=== PATIENT | female | born 1950 | race Caucasian/White ===

== ENCOUNTER 2017-08-08 14:46 | Inpatient (IN) | payer OTHER, MEDICAID ==
[~2017-08-08] VITALS: Ht 157.5 cm; Wt 62.3 kg
[~2017-08-08 14:46] MED LIST: ALPR0.5T7; ATOR10TA PO; BACL20TA; DIPH50CA; GABA100C9; PAXIL PO
[2017-08-08 16:26] LABS: Basophils # (auto) 0.1 uL; Basophils % (auto) 1.1 % (0.0-2.0); Eosinophils # (auto) 0.1 uL; Eosinophils % (auto) 1.3 % (0.0-7.0); Hematocrit 39.4 % (36.0-46.0); Hemoglobin 12.9 g/dL (12.2-16.2); Lymphocytes # (auto) 2.7 uL; Lymphocytes % (auto) 27.1 % (10.0-50.0); Mean Corpuscular Hemoglobin 30.1 pg (28.0-32.0); Mean Corpuscular Hgb Conc. 32.8 g/dL (32.0-36.0); Mean Corpuscular Volume 91.9 fL (80.0-100.0); Monocytes # (auto) 0.9 uL; Monocytes % (auto) 8.8 % (0.0-12.0); Neutrophils # (auto) 6.2 uL; Neutrophils % (auto) 61.7 % (37.0-80.0); Platelet Count (auto) 223 10^3/uL (140-450); Red Blood Cells 4.29 10^6/uL (4.0-5.20); Red Cell Distribution Width 14.3 % (11.8-14.3); White Blood Cell 10.1 10^3/uL (4.4-10.8)
[2017-08-08 16:27] LABS: Urine Bacteria FEW /hpf (None Seen); Urine Blood Negative /uL (Negative); Urine Mucus FEW (None Seen); Urine Specific Gravity 1.021 (1.001-1.035); Urine WBC 6 /hpf (0 - 5)
[2017-08-08 16:33] LABS: Albumin 3.5 g/dL (3.4-5.0); BUN/Creatinine Ratio 25.8; Bilirubin, Total 0.1 mg/dL (0.2-1.0); Calcium 8.9 mg/dL (8.5-10.1); Potassium 3.5 mmol/L (3.5-5.1)
[2017-08-08] MEDS ORDERED: ONDANSETRON HCL 4 MG/2 ML VIAL IV ONE (16:45)
[2017-08-08 17:23] LABS: INR 0.96 (0.9-1.15); Partial Thromboplastin Time 27.9 sec (23.78-33.04); Prothrombin Time 10.3 sec (9.27-12.13)
[2017-08-08 17:31] LABS: Magnesium 1.7 mg/dL (1.6-2.6)
[2017-08-08] MEDS ORDERED: cefTRIAXone 1GM/10ml IVPUSH 10 ML IV ONE ×2 (18:15→18:45)
[2017-08-08] MEDS ORDERED: SODIUM CHLORIDE 0.9% 1,000 ML IV ONE (18:15)
[2017-08-08] MEDS ORDERED: TEMAZEPAM 15 MG CAP PO PRN (18:45)
[2017-08-08] MEDS ORDERED: ACETAMINOPHEN 500 MG TAB PO PRN (18:45)
[2017-08-08] MEDS ORDERED: LORazepam 0.5 MG TAB PO PRN (18:45)
[2017-08-08] MEDS ORDERED: NITROGLYCERIN 0.4 MG SL TAB SL PRN (18:45)
[2017-08-08] MEDS ORDERED: MORPHINE SULFATE 8mg/ml INJ SDV IV PRN ×2 (18:45)
[2017-08-08 20:30] VITALS: BP 136/2
[2017-08-08] MEDS: HYDROcodone-ACET 5/325MG TAB PO PRN (21:39)
[2017-08-08] MEDS: SODIUM CHLORIDE 0.9% 1,000 ML IV SCH (22:21)
[2017-08-08 23:02] VITALS: BP 136/82
[2017-08-09] MEDS ORDERED: ACET1SOL8 PO (01:18)
[2017-08-09] MEDS: SODIUM CHLORIDE 0.9% 1,000 ML IV SCH (04:35)
[2017-08-09 05:13] LABS: Urine Bacteria FEW /hpf (None Seen); Urine Blood Negative /uL (Negative); Urine Mucus FEW (None Seen); Urine Specific Gravity 1.012 (1.001-1.035); Urine WBC 41 /hpf (0 - 5)
[2017-08-09] MEDS: HYDROcodone-ACET 5/325MG TAB PO PRN ×2 (05:19→13:01)
[2017-08-09 05:20] VITALS: BP 97/71
[2017-08-09 06:39] LABS: Basophils # (auto) 0.1 uL; Basophils % (auto) 1.1 % (0.0-2.0); Eosinophils # (auto) 0.2 uL; Eosinophils % (auto) 2.6 % (0.0-7.0); Hematocrit 35.5 % (36.0-46.0); Hemoglobin 12.1 g/dL (12.2-16.2); Lymphocytes # (auto) 2.7 uL; Lymphocytes % (auto) 35.7 % (10.0-50.0); Mean Corpuscular Hemoglobin 31.2 pg (28.0-32.0); Mean Corpuscular Volume 91.8 fL (80.0-100.0); Monocytes # (auto) 0.7 uL; Monocytes % (auto) 9.1 % (0.0-12.0); Neutrophils # (auto) 3.9 uL; Neutrophils % (auto) 51.5 % (37.0-80.0); Nucleated Red Blood Cells % 0.1 %; Platelet Count (auto) 192 10^3/uL (140-450); Red Blood Cells 3.86 10^6/uL (4.0-5.20); White Blood Cell 7.6 10^3/uL (4.4-10.8)
[2017-08-09 06:40] LABS: BUN/Creatinine Ratio 20.5; Bilirubin, Total 0.1 mg/dL (0.2-1.0); Calcium 8.8 mg/dL (8.5-10.1)
[2017-08-09 08:00] VITALS: BP 101/57
[2017-08-09] MEDS: cefTRIAXone 1GM/10ml IVPUSH 10 ML IV SCH (08:47)
[2017-08-09] MEDS: PROMETHAZINE HCL 25 MG/ML 1ML IV PRN (08:55)
[2017-08-09] MEDS: PANTOPRAZOLE 40 MG TAB PO SCH (08:55)
[2017-08-09] MEDS ORDERED: ENOXAPARIN SOD 40 MG/0.4 ML SYRINGE SC SCH (10:00)
[2017-08-09 12:00] VITALS: BP 132/79
[2017-08-09] MEDS ORDERED: POTASSIUM CHL 20 Meq TABLET PO ONE (13:45)
[2017-08-09] MEDS ORDERED: FLUCONAZOLE 100 MG TAB PO ONE (13:45)
[2017-08-09] MEDS ORDERED: MORPHINE SULFATE 10 MG/ML INJ 1ML SDV IV PRN (14:00)
[2017-08-09] MEDS: ALPRAZolam 0.5 MG TAB PO PRN ×2 (14:27→22:09)
[2017-08-09] MEDS: ACETAMINOPHEN/CODEINE#3 (300/30mg) TAB PO PRN ×2 (14:27→18:35)
[2017-08-09 17:01] VITALS: BP 133/73
[2017-08-09 22:29] VITALS: BP 119/74
[2017-08-10] VITALS (7 sets, daily range): BP systolic 112–134; BP diastolic 70–94
[2017-08-10] MEDS: ACETAMINOPHEN/CODEINE#3 (300/30mg) TAB PO PRN ×4 (04:49→19:30)
[2017-08-10 06:14] LABS: Basophils # (auto) 0.1 uL; Basophils % (auto) 1.3 % (0.0-2.0); Eosinophils # (auto) 0.2 uL; Eosinophils % (auto) 2.4 % (0.0-7.0); Hemoglobin 11.4 g/dL (12.2-16.2); Lymphocytes # (auto) 2.3 uL; Lymphocytes % (auto) 34.1 % (10.0-50.0); Mean Corpuscular Hgb Conc. 33.5 g/dL (32.0-36.0); Mean Corpuscular Volume 92.6 fL (80.0-100.0); Monocytes # (auto) 0.8 uL; Monocytes % (auto) 11.3 % (0.0-12.0); Neutrophils # (auto) 3.4 uL; Neutrophils % (auto) 50.9 % (37.0-80.0); Nucleated Red Blood Cells % 0.1 %; Platelet Count (auto) 191 10^3/uL (140-450); Red Blood Cells 3.68 10^6/uL (4.0-5.20); Red Cell Distribution Width 14.1 % (11.8-14.3); White Blood Cell 6.7 10^3/uL (4.4-10.8)
[2017-08-10 06:31] LABS: BUN/Creatinine Ratio 13.3; Calcium 8.7 mg/dL (8.5-10.1); Potassium 4.2 mmol/L (3.5-5.1)
[2017-08-10] MEDS: PROMETHAZINE HCL 25 MG/ML 1ML IV PRN (07:57)
[2017-08-10] MEDS: cefTRIAXone 1GM/10ml IVPUSH 10 ML IV SCH (10:21)
[2017-08-10] MEDS: PANTOPRAZOLE 40 MG TAB PO SCH (10:21)
[2017-08-10] MEDS: ALPRAZolam 0.5 MG TAB PO PRN ×2 (10:28→21:50)
[2017-08-10] MEDS: PHENAZOPYRIDINE HCL 100 MG TAB PO SCH ×2 (12:16→18:03)
[2017-08-10 21:06] LABS: Urine Bacteria NONE SEEN /hpf (None Seen); Urine Blood Negative /uL (Negative); Urine Specific Gravity 1.004 (1.001-1.035); Urine WBC <1 /hpf (0 - 5)
[2017-08-11] MEDS: ACETAMINOPHEN/CODEINE#3 (300/30mg) TAB PO PRN ×4 (00:12→17:37)
[2017-08-11 05:00] VITALS: BP 126/75
[2017-08-11 08:00] VITALS: BP 134/79
[2017-08-11] MEDS: ALPRAZolam 0.5 MG TAB PO PRN ×2 (08:27→16:15)
[2017-08-11] MEDS: PHENAZOPYRIDINE HCL 100 MG TAB PO SCH ×3 (08:27→17:37)
[2017-08-11] MEDS: cefTRIAXone 1GM/10ml IVPUSH 10 ML IV SCH (08:27)
[2017-08-11 09:00] VITALS: BP 140/90
[2017-08-11] MEDS: PANTOPRAZOLE 40 MG TAB PO SCH (09:45)
[2017-08-11 13:02] VITALS: BP 129/83
[2017-08-11 14:42] VITALS: BP 129/83
[2017-08-11 17:00] VITALS: BP_SYST 123; BP_SYST 129; BP_DIAS 74; BP_DIAS 83
== END 2017-08-11 19:00 | disposition home or self-care (01) | DRG 690 ==
LOC: ER 14:46 → TELE 14:47 → TELE-WESTW 21:21 → WEST WING 08-09 17:03
PROVIDERS: ADMIT Internal Medicine; ATTEND Internal Medicine
DX: N39.0 Urinary tract infection, site not specified (principal); N28.1 Cyst of kidney, acquired; F17.210 Nicotine dependence, cigarettes, uncomplicated; K57.30 Diverticulosis of large intestine without perforation or abscess without bleeding; G47.00 Insomnia, unspecified; F41.9 Anxiety disorder, unspecified; G89.29 Other chronic pain; N28.89 Other specified disorders of kidney and ureter; I10 Essential (primary) hypertension; Z82.49 Family history of ischemic heart disease and other diseases of the circulatory system; Z85.118 Personal history of other malignant neoplasm of bronchus and lung; Z90.2 Acquired absence of lung [part of]; Z88.0 Allergy status to penicillin; Z79.899 Other long term (current) drug therapy; Z78.0 Asymptomatic menopausal state; Z91.041 Radiographic dye allergy status
CPT/HCPCS: 36415; 71045; 74176; 76775; 76856; 80048; 80053; 80061; 81001; 82150; 83690; 83735; 85025; 85610; 85652; 85730; 86141; 87086; 93005; 94761; 96374; 96375; J2270; J2405

== ENCOUNTER 2017-11-02 17:33 | Observation (INO) | payer OTHER, MEDICAID ==
[~2017-11-02] VITALS: Ht 157.5 cm; Wt 59.9 kg
[~2017-11-02 17:33] MED LIST changes: +ACET1SOL8 PO; -BACL20TA; -DIPH50CA; -GABA100C9
[2017-11-02 22:07] LABS: Basophils # (auto) 0.1 uL; Basophils % (auto) 0.7 % (0.0-2.0); Eosinophils # (auto) 0 uL; Eosinophils % (auto) 0.1 % (0.0-7.0); Hematocrit 42.7 % (36.0-46.0); Hemoglobin 14.1 g/dL (12.2-16.2); Lymphocytes # (auto) 1.6 uL; Lymphocytes % (auto) 10.9 % (10.0-50.0); Mean Corpuscular Hemoglobin 30.3 pg (28.0-32.0); Mean Corpuscular Hgb Conc. 32.9 g/dL (32.0-36.0); Monocytes # (auto) 0.9 uL; Monocytes % (auto) 6.7 % (0.0-12.0); Neutrophils # (auto) 11.6 uL; Neutrophils % (auto) 81.6 % (37.0-80.0); Platelet Count (auto) 276 10^3/uL (140-450); Red Blood Cells 4.64 10^6/uL (4.0-5.20); Red Cell Distribution Width 14.7 % (11.8-14.3); White Blood Cell 14.2 10^3/uL (4.4-10.8)
[2017-11-02 22:21] LABS: INR 0.96 (0.9-1.15); Partial Thromboplastin Time 27.2 sec (23.78-33.04); Prothrombin Time 10.3 sec (9.27-12.13)
[2017-11-02 22:24] LABS: Albumin 3.9 g/dL (3.4-5.0); Anion Gap 11 (5-15); Blood Urea Nitrogen 10 mg/dL (7-18); Calcium 9.3 mg/dL (8.5-10.1); Carbon Dioxide 25 mmol/L (21-32); Chloride 104 mmol/L (98-107); Glucose 106 mg/dL (74-106); Magnesium 1.8 mg/dL (1.6-2.6); Potassium 3.2 mmol/L (3.5-5.1); Sodium 140 mmol/L (136-145)
[2017-11-02 22:26] LABS: GFR African American 79 mL/min; GFR Non-African American 65 mL/min
[2017-11-02 22:31] LABS: Alanine Aminotransferase 19 U/L (13-56); Alkaline Phosphatase 97 U/L (45-117); Aspartate Aminotransferase 16 U/L (15-37); Bilirubin, Total 0.6 mg/dL (0.2-1.0)
[2017-11-03] VITALS: BP 146/80
[2017-11-03] MEDS ORDERED: MORPHINE SULFATE 4 MG/ML SYR/VIAL IM ONE
[2017-11-03] MEDS ORDERED: ONDANSETRON HCL 4 MG/2 ML VIAL IM ONE
== END 2017-11-03 01:09 | disposition home or self-care (01) | DRG 312 ==
LOC: EDBD 17:33 → ER 17:41 → OVERFLOW 17:42 → ER 11-03 01:09
PROVIDERS: ADMIT Emergency Medicine; ATTEND Emergency Medicine
DX: R55 Syncope and collapse (principal); S30.0XXA Contusion of lower back and pelvis, initial encounter; S80.12XA Contusion of left lower leg, initial encounter; E78.5 Hyperlipidemia, unspecified; I10 Essential (primary) hypertension; F41.9 Anxiety disorder, unspecified; F12.10 Cannabis abuse, uncomplicated; Z85.118 Personal history of other malignant neoplasm of bronchus and lung; Z87.891 Personal history of nicotine dependence; Z82.49 Family history of ischemic heart disease and other diseases of the circulatory system; W18.30XA Fall on same level, unspecified, initial encounter; Y92.89 Other specified places as the place of occurrence of the external cause; Y93.9 Activity, unspecified; Y99.9 Unspecified external cause status
CPT/HCPCS: 36415; 70450; 71045; 72131; 73502; 73562; 80053; 80320; 83735; 83880; 84443; 84484; 85025; 85610; 85730; 93005; 96372; 99285; G0378; J2270; J2405

== ENCOUNTER 2022-10-06 17:02 | Emergency (ER) | payer OTHER, MEDICAID ==
[~2022-10-06] VITALS: Ht 162.6 cm; Wt 65.0 kg
[2022-10-06 18:50] LABS: Basophils # (auto) 0.1 10 ^3/uL (0-0.2); Basophils % (auto) 1.4 % (0.0-2.0); Eosinophils # (auto) 0.2 10 ^3/uL (0-0.8); Eosinophils % (auto) 2.7 % (0.0-7.0); Hematocrit 36.3 % (36.0-46.0); Hemoglobin 11.6 g/dL (12.2-16.2); Lymphocytes % (auto) 25.8 % (10.0-50.0); Mean Corpuscular Hemoglobin 29.1 pg (28.0-32.0); Mean Corpuscular Volume 90.9 fL (80.0-100.0); Monocytes # (auto) 0.6 10 ^3/uL (0-1.3); Neutrophils # (auto) 4.8 10 ^3/uL (1.6-8.6); Neutrophils % (auto) 62.1 % (37.0-80.0); Red Blood Cells 3.99 10^6/uL (4.0-5.20); Red Cell Distribution Width 14.5 % (11.8-14.3); White Blood Cell 7.8 10^3/uL (4.4-10.8)
[2022-10-06 18:55] LABS: Albumin 3.5 g/dL (3.4-5.0); Calcium 8.8 mg/dL (8.5-10.1); Potassium 4.3 mmol/L (3.5-5.1)
[2022-10-06 18:59] LABS: BUN/Creatinine Ratio 12.6 (10.0-20.0); Bilirubin, Total 0.3 mg/dL (0.2-1.0); Total Protein 7.2 g/dL (6.4-8.2)
[2022-10-06] MEDS ORDERED: ALBUTEROL SULF 2.5 MG/0.5ML(0.5%) NEB SOLN NEB ONE (19:45)
[2022-10-06] MEDS ORDERED: IPRATROPIUM BROM 0.5 MG/2.5ML INH SOL NEB ONE (19:45)
[2022-10-06 21:00] LABS: Urine Bacteria NONE SEEN /hpf (None Seen); Urine Blood Negative /uL (Negative); Urine Specific Gravity 1.009 (1.001-1.035); Urine WBC 2 /hpf (0 - 5)
[2022-10-06] MEDS ORDERED: ALBU108A5 IN (21:12)
[2022-10-06] MEDS ORDERED: AZITTAB PO (21:12)
[2022-10-06 21:53] VITALS: BP 131/68; PULSE 73; RESP 17; TEMP 97.7; O2SAT 95
== END 2022-10-06 21:53 | disposition home or self-care (01) ==
LOC: ER 17:02 → EDBD 17:02 → ER 21:53
DX: J18.9 Pneumonia, unspecified organism (principal); I12.9 Hypertensive chronic kidney disease with stage 1 through stage 4 chronic kidney disease, or unspecified chronic kidney disease; N18.9 Chronic kidney disease, unspecified; E78.5 Hyperlipidemia, unspecified; F12.10 Cannabis abuse, uncomplicated; Z87.891 Personal history of nicotine dependence; Z88.0 Allergy status to penicillin; Z91.041 Radiographic dye allergy status
CPT/HCPCS: 36415; 71045; 80053; 81001; 83605; 83690; 83880; 84484; 85025; 93005; 94640; 99285; J7644

== ENCOUNTER 2023-04-20 13:53 | Emergency (ER) | payer OTHER, MEDICAID ==
[~2023-04-20] VITALS: Ht 152.4 cm; Wt 58.1 kg
[~2023-04-20 13:53] MED LIST changes: +ALBU108A5 IN; +AZITTAB PO
[2023-04-20 13:55] VITALS: BP 155/93; RESP 16; O2SAT 97
[2023-04-20 14:45] LABS: Basophils # (auto) 0.1 10 ^3/uL (0-0.2); Basophils % (auto) 1.6 % (0.0-2.0); Eosinophils # (auto) 0.1 10 ^3/uL (0-0.8); Eosinophils % (auto) 1.4 % (0.0-7.0); Hematocrit 39.5 % (36.0-46.0); Hemoglobin 12.6 g/dL (12.2-16.2); Lymphocytes % (auto) 24.8 % (10.0-50.0); Mean Corpuscular Hemoglobin 29.9 pg (28.0-32.0); Mean Corpuscular Hgb Conc. 31.9 g/dL (32.0-36.0); Mean Corpuscular Volume 93.6 fL (80.0-100.0); Monocytes # (auto) 0.5 10 ^3/uL (0-1.3); Monocytes % (auto) 6.7 % (0.0-12.0); Neutrophils # (auto) 5.2 10 ^3/uL (1.6-8.6); Neutrophils % (auto) 65.5 % (37.0-80.0); Red Blood Cells 4.22 10^6/uL (4.0-5.20); Red Cell Distribution Width 14.4 % (11.8-14.3); White Blood Cell 7.9 10^3/uL (4.4-10.8)
[2023-04-20 14:55] VITALS: PULSE 87
[2023-04-20 14:55] LABS: Alanine Aminotransferase 16 U/L (7-40); Albumin 4.3 g/dL (3.2-4.8); Alkaline Phosphatase 97 U/L (46-116); Anion Gap 7 (5-15); Aspartate Aminotransferase 19 U/L (13-40); BUN/Creatinine Ratio 8.4 (10.0-20.0); Bilirubin, Total 0.5 mg/dL (0.2-1.0); Blood Urea Nitrogen 10 mg/dL (9-23); Carbon Dioxide 28 mmol/L (20-30); Chloride 103 mmol/L (98-107); Glucose 118 mg/dL (74-106); Magnesium 1.9 mg/dL (1.6-2.6); Potassium 4.8 mmol/L (3.5-5.1); Sodium 138 mmol/L (136-145); Total Protein 6.9 g/dL (5.7-8.2)
[2023-04-20 15:02] LABS: INR 0.96 (0.9-1.15); Partial Thromboplastin Time 27.6 SEC (24.5-34.5); Prothrombin Time 10.1 sec (9.3-11.8)
== END 2023-04-20 18:20 | disposition home or self-care (01) ==
LOC: EDBD 13:53 → ER 13:53
DX: R07.89 Other chest pain (principal); I13.0 Hypertensive heart and chronic kidney disease with heart failure and stage 1 through stage 4 chronic kidney disease, or unspecified chronic kidney disease; N18.9 Chronic kidney disease, unspecified; I50.9 Heart failure, unspecified; J44.9 Chronic obstructive pulmonary disease, unspecified; E78.5 Hyperlipidemia, unspecified; F12.10 Cannabis abuse, uncomplicated; Z87.891 Personal history of nicotine dependence; Z88.0 Allergy status to penicillin; Z91.041 Radiographic dye allergy status
CPT/HCPCS: 36415; 71045; 80053; 83735; 83880; 84484; 85025; 85610; 85730; 93005